=== PATIENT | female | born 1950 | race Caucasian/White ===

== ENCOUNTER → 2017-01-05 | Outpatient (CLI) | payer BC, MEDICARE ==
[~2017-01-05] MED LIST: ALBUTEROL17 GM INH; EXFORGE 5-320 M1 TAB PO; EXFORGE PO; LIPITOR PO; PULMICORT0.25 MG/2 IH; SINGULAIR PO
== END | disposition home or self-care (01) ==
LOC: CLAB 10:52
DX: R06.00 Dyspnea, unspecified (principal); R09.02 Hypoxemia
CPT/HCPCS: 36415; 85379